=== PATIENT | male | born 2000 | race Caucasian/White ===

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

== ENCOUNTER 2024-01-08 19:40 | Emergency (ER) | payer OTHER ==
[2024-01-08] MEDS: Cephalexin 500 MG Cap PO STA (21:36)
== END 2024-01-08 21:54 | disposition home or self-care (01) ==
LOC: MW.ED 19:40
DX: T23.231A Burn of second degree of multiple right fingers (nail), not including thumb, initial encounter (principal); T31.0 Burns involving less than 10% of body surface; Z75.8 Other problems related to medical facilities and other health care; X10.2XXA Contact with fats and cooking oils, initial encounter
CPT/HCPCS: 99283; A9270